=== PATIENT | female | born 1965 | race Caucasian/White ===

== ENCOUNTER 2019-06-10 07:34 | Day surgery (SDC) | payer BC ==
[~2019-06-10 07:34] MED LIST: ACETAMINOPHEN 1,000 MG/100 ML BTL IVPB ONE; ACETAMINOPHEN 500 MG TABLET PO ONE; CEFAZOLIN 1 Gram 1 GM/50 ML BAG IVPB ONE; CEFAZOLIN 2 Gram 2 GM/50 ML BAG IVPB ONE; FAMOTIDINE 20MG TABLET PO ONE; MECLIZINE 25 MG TABLET PO ONE; METOCLOPRAMIDE 10 MG TABLET PO ONE
[2019-06-10] MEDS ORDERED: LIDOCAINE 2% MDV (20MG/ML) 20ML VIAL IV ONE (07:35)
[2019-06-10] MEDS ORDERED: DEXAMETHASONE 4 MG/ML 1ML VIAL IVP ONE ×2 (07:35)
[2019-06-10] MEDS ORDERED: KETOROLAC 30 MG/ML VIAL IVP ONE (07:35)
[2019-06-10] MEDS ORDERED: MIDAZOLAM HCL 2MG/2ML VIAL IV ONE (07:35)
[2019-06-10] MEDS ORDERED: SUCCINYLCHOLINE 20 MG/ML 10ML IVP ONE (07:35)
[2019-06-10] MEDS ORDERED: ROCURONIUM BROMIDE 50MG/5ML VIAL IV ONE (07:35)
[2019-06-10] MEDS ORDERED: GLYCOPYRROLATE 0.2 MG/ML ML IV ONE (07:35)
[2019-06-10] MEDS ORDERED: ROPIVACAINE HCL (NAROPIN) /PF 5MG/ML 20ML VIAL IV ONE (07:35)
[2019-06-10] MEDS ORDERED: FENTANYL PF 100MCG/2ML VIAL IV ONE (07:35)
[2019-06-10] MEDS ORDERED: SEVOFLURANE 250 ML INH ONE (07:35)
[2019-06-10] MEDS ORDERED: ONDANSETRON HCL IV 4 MG/2 ML VIAL IVP ONE (07:35)
[2019-06-10] MEDS ORDERED: SUGAMMADEX SODIUM 200 MG/2 ML VIAL IV ONE (07:35)
[2019-06-10] MEDS ORDERED: PROPOFOL 10 MG/ML VIAL IV ONE (07:35)
[2019-06-10] MEDS ORDERED: RINGERS SOLUTION,LACTATED 1,000 ML IV ONE ×2 (08:15→09:30)
[2019-06-10] MEDS ORDERED: BUPIVACAINE 0.25% W/EPI MPF 30ML VIAL SQ ONE (09:10)
[2019-06-10] MEDS ORDERED: TRAMADOL HCL 50 MG TABLET PO ONE (10:19)
--- NOTE | 2019-06-24 10:51 | Operative Note ---
DATE OF SURGERY: 06/10/2019 PREOPERATIVE DIAGNOSIS: Incarcerated ventral hernia. POSTOPERATIVE DIAGNOSIS: Incarcerated ventral hernia. OPERATION: Laparoscopic ventral herniorrhaphy with mesh. INDICATION: The patient is a 53-year-old female who has had a mid ventral hernia. This was getting larger and more painful for her. We did discuss repair. Risks, benefits, and alternatives were discussed. I did see her in the past and did recommend weight loss due to her morbid obesity but she could not wait any further due to the pain and increasing size. Therefore, risks include bleeding, infection, acute or chronic pain, recurrence. She understood this fully. PROCEDURE: After consent was signed, questions answered, she was taken to the operating room and placed in a supine position. General anesthesia was administered per the department of anesthesia. The patient 's abdomen was prepped and draped in the usual sterile fashion. Left upper quadrant region was cannulated with an 11 mm Visiport. All abdominal areas were traversed under direct visualization. At this time, additional 5 mm right flank and 5 mm left flank ports were then placed. The patient did have incarcerated omentum up in the hernia. This was reduced. This was at the base of the falciform ligament. This had to be taken down with Harmonic. The hernia itself measured about 1.5 cm. A 10 x 15 cm mesh was obtained. Four preplaced cardinal stitches were placed on the mesh. This was placed in the intraperitoneal position. Using a core suture passer, these were grasped transfascially and held in place. This was done on all 4 sides. The hernia was centered on the mesh. A tacking device was used to tack the mesh in place in a 360-degree fashion. We had excellent 4-5 cm overlap on all sides. At this time, the sutures were tied down. These were trimmed. Skin dimpling was released. The camera was turned around. There was no bleeding. No bowel injury. No bile leaking. Pneumoperitoneum was released. All ports removed. The fascia was closed with 0 Vicryl in a [id number] fashion. The skin at all 3 ports closed with 4-0 Vicryl. She was taken to the recovery room in stable condition. FINDINGS ON SURGERY: Incarcerated ventral hernia, repaired as above. MTDD
== END 2019-06-10 10:43 | disposition home or self-care (01) ==
LOC: SUR 07:34
PROVIDERS: ATTEND Surgery
DX: K43.6 Other and unspecified ventral hernia with obstruction, without gangrene (principal); J45.909 Unspecified asthma, uncomplicated; Z68.41 Body mass index [BMI] 40.0-44.9, adult
CPT/HCPCS: 76942; C1781; J0330; J1885; J2405; J3490; J7120